=== PATIENT | male | born 1950 | race Caucasian/White ===

== ENCOUNTER 2019-11-17 11:40 | Outpatient (CLI) | payer MEDICARE, BC, SELFPAY | END 2019-11-17 11:41 | disposition home or self-care (01) | PROVIDERS: PCP Family Medicine; Visit Provider Specialist | DX: C44.319 Basal cell carcinoma of skin of other parts of face (principal); C44.311 Basal cell carcinoma of skin of nose; C44.529 Squamous cell carcinoma of skin of other part of trunk; C44.519 Basal cell carcinoma of skin of other part of trunk | CPT/HCPCS: 88305 ==

== ENCOUNTER 2020-07-12 10:15 | Outpatient (CLI) | payer MEDICARE, BC, SELFPAY | END 2020-07-12 10:16 | disposition home or self-care (01) | LOC: CHSLAB 10:21 | PROVIDERS: PCP Family Medicine; Visit Provider Specialist | DX: C44.311 Basal cell carcinoma of skin of nose (principal) | CPT/HCPCS: 88305 ==

== ENCOUNTER 2021-07-11 11:06 | Outpatient (CLI) | payer MEDICARE, BC, SELFPAY | END 2021-07-11 11:07 | disposition home or self-care (01) | LOC: CHSOUTPT 11:29 | PROVIDERS: PCP Family Medicine; Visit Provider Specialist | DX: C44.612 Basal cell carcinoma of skin of right upper limb, including shoulder (principal); C44.321 Squamous cell carcinoma of skin of nose | CPT/HCPCS: 88305 ==

== ENCOUNTER 2022-01-16 13:05 | Outpatient (CLI) | payer MEDICARE, BC, SELFPAY | END 2022-01-16 13:06 | disposition home or self-care (01) | LOC: CHSLAB 13:09 | PROVIDERS: PCP Family Medicine; Visit Provider Specialist | DX: C44.619 Basal cell carcinoma of skin of left upper limb, including shoulder (principal) | CPT/HCPCS: 88305 ==

== ENCOUNTER 2023-03-19 12:08 | Outpatient (CLI) | payer MEDICARE, BC, SELFPAY | END 2023-03-19 12:09 | disposition home or self-care (01) | PROVIDERS: PCP Family Medicine; Visit Provider Specialist | DX: C44.329 Squamous cell carcinoma of skin of other parts of face (principal) | CPT/HCPCS: 88305 ==